=== PATIENT | female | born 1970 | race Hispanic/Latino ===

== ENCOUNTER 2024-10-11 10:10 | Emergency (ER) | payer OTHER, SELFPAY ==
[2024-10-11] MEDS ORDERED: Acetaminophen 500 MG TAB ONE (10:50)
== END 2024-10-11 11:31 | disposition home or self-care (01) ==
LOC: ERS 10:10
DX: S83.421A Sprain of lateral collateral ligament of right knee, initial encounter (principal); E78.5 Hyperlipidemia, unspecified; I10 Essential (primary) hypertension; X58.XXXA Exposure to other specified factors, initial encounter; Y93.41 Activity, dancing; Z75.8 Other problems related to medical facilities and other health care; Z79.899 Other long term (current) drug therapy
CPT/HCPCS: 99283